=== PATIENT | male | born 1990 | race Two or more races ===

== ENCOUNTER 2025-05-26 20:59 | Emergency (ER) | payer OTHER ==
[~2025-05-26] VITALS: Ht 180.3 cm; Wt 98.0 kg
[2025-05-26 21:10] VITALS: O2SAT 100
[2025-05-26 22:33] LABS: BASOPHILS % 0.3 % (0.0-2.0); EOSINOPHILS % 0.4 % (0.0-5.0); HEMATOCRIT. 41.3 % (42.0-52.0); HEMOGLOBIN. 14.1 g/dL (14.0-18.0); LYMPHOCYTES % 15.7 % (20.0-50.0); MEAN PLATELET VOLUME 7.7 fl (7.4-10.4); MONOCYTES % 7.4 % (2.0-8.0); NEUTROPHILS % 76.2 % (40.0-76.0); PLATELET 255 x1000/uL (130-400); RED BLOOD CELL COUNT 4.72 mill/uL (4.7-6.1); RED CELL DISTRIBUTION WIDTH 12.9 % (11.6-14.6)
[2025-05-26 22:37] LABS: CLARITY URINE CLOUDY (CLEAR); COLOR URINE DARK YELLOW (YELLOW); GLUCOSE URINE NEGATIVE (NEGATIVE); KETONES URINE 1+ (NEGATIVE); LEUKOCYTE ESTERASE URINE TRACE (NEGATIVE); NITRITE URINE NEGATIVE (NEGATIVE); OCCULT BLOOD URINE NEGATIVE (NEGATIVE); PH URINE 7.0 (4.5-8.0); PROTEIN URINE 2+ (NEGATIVE); SPECIFIC GRAVITY URINE 1.033 (1.005-1.030); UROBILINOGEN URINE 1.0 E.U./dL (0.2-1.0)
[2025-05-26 22:43] LABS: *AMPHETAMINES SCREEN URINE NEGATIVE (NEGATIVE); *BARBITURATES SCREEN URINE NEGATIVE (NEGATIVE); *BENZODIAZEPINES SCREEN URINE NEGATIVE (NEGATIVE); *COCAINE SCREEN URINE NEGATIVE (NEGATIVE); CANNABINOID URINE SCREEN NEGATIVE (NEGATIVE); METHADONE URINE SCREEN NEGATIVE (NEGATIVE); OPIATES URINE SCREEN NEGATIVE (NEGATIVE); PHENCYCLIDINE URINE SCREEN NEGATIVE (NEGATIVE)
[2025-05-26 22:44] LABS: ECSTASY MDMA SCREEN URINE NEGATIVE (NEGATIVE)
[2025-05-26 22:52] LABS: CREATININE 1.1 mg/dL (0.6-1.3); UREA NITROGEN BLOOD 10 mg/dL (9-23)
[2025-05-26 22:54] LABS: ASPARTATE AMINOTRANSFERASE 30 IU/L (<34); BILIRUBIN DIRECT 0.3 mg/dL (<=3.0); BILIRUBIN TOTAL 0.9 mg/dL (0.1-1.0); PROTEIN TOTAL 7.5 g/dL (6.0-8.3)
[2025-05-26 22:57] LABS: BACTERIA URINE TRACE; RBC URINE NONE SEEN /hpf (0-2); SQUAMOUS EPITHELIAL CELL URINE FEW /lpf (RARE/1+)
[2025-05-26 22:58] LABS: WBC URINE 0-2 /hpf (0-2)
[2025-05-27] MEDS: SODIUM CHLORIDE 0.9% 1,000 ML IV ONE ×2 (01:20→01:21)
[2025-05-27] MEDS: LORAZEPAM 2MG/ML UD SYRINGE IV NR (02:14)
[2025-05-27 06:53] VITALS: BP 106/72; PULSE 56; RESP 16; TEMP 36.8; O2SAT 100
[2025-05-27] MEDS: VENLAFAXINE HCL 37.5MG SR CAPSULE 24HR PO SCH (09:54)
== END 2025-05-27 13:10 | disposition left against medical advice (07) ==
LOC: ER 20:59
DX: R45.851 Suicidal ideations (principal); Z59.00 Homelessness unspecified; Z79.899 Other long term (current) drug therapy; Z20.822 Contact with and (suspected) exposure to COVID-19
CPT/HCPCS: 80076; 80305; 80048; 81003; 80307; 80329; 80320; 82550 ×2; 85025; 36415 ×2; 96361; 96374; 99285; 87426; J2060; J7030; Z7610; G0480